=== PATIENT | male | born 1955 | race African-American/Black ===

== ENCOUNTER 2018-11-17 19:58 | Inpatient (IN) | payer MEDICAID ==
[~2018-11-17] VITALS: Ht 165.1 cm; Wt 65.3 kg
[~2018-11-17 19:58] MED LIST: ALBU6.7H IH; FLUT1DIS3 IH
[2018-11-17] MEDS ORDERED: IPRATROPIUM BROMIDE (0.02%) 0.5MG/2.5ML NEB HHN STA (20:18)
[2018-11-17] MEDS ORDERED: SODIUM CHLORIDE 0.9% 1,000 ML IV ONE (20:18)
[2018-11-17] MEDS ORDERED: METHYLPREDNISOLONE SOD SUCC 125 MG/2 ML VIAL IV STA (20:18)
[2018-11-17] MEDS ORDERED: MAGNESIUM 2 G PREMIX 50 ML IV ONE (20:30)
[2018-11-17 20:40] LABS: HEMATOCRIT. 43.8 % (42.0-52.0); HEMOGLOBIN. 14.3 g/dL (14.0-18.0); LYMPHOCYTES % 17.3 % (20.0-50.0); MEAN PLATELET VOLUME 9.9 fl (7.4-10.4); MONOCYTES % 9.5 % (2.0-8.0); NEUTROPHILS % 69.9 % (40.0-76.0); PLATELET 176 x1000/uL (130-400); RED BLOOD CELL COUNT 4.93 mill/uL (4.7-6.1); RED CELL DISTRIBUTION WIDTH 17.8 % (11.6-14.6)
[2018-11-17 20:41] LABS: BASOPHILS % 0.5 % (0.0-2.0); EOSINOPHILS % 2.8 % (0.0-5.0)
[2018-11-17 20:44] LABS: CHLORIDE 108 mEq/L (98-107)
[2018-11-17] MEDS: ALBUTEROL (0.083%) 2.5MG/3ML NEB HHN SCH ×3 (21:00→21:34)
[2018-11-17] MEDS ORDERED: IPRATROPIUM/ALBUTEROL 0.5-3(2.5)MG/3ML NEB INH PRN (22:30)
[2018-11-17] MEDS ORDERED: DOCUSATE SODIUM 100MG CAPSULE PO PRN (22:30)
[2018-11-17] MEDS ORDERED: ONDANSETRON HCL 4MG/2ML INJ IV PRN (22:30)
[2018-11-17] MEDS ORDERED: BUDESONIDE 0.5MG/2ML NEB HHN SCH (22:30)
[2018-11-17] MEDS ORDERED: IPRATROPIUM/ALBUTEROL 0.5-3(2.5)MG/3ML NEB INH SCH (22:30)
[2018-11-17] MEDS ORDERED: MAGNESIUM/ALUMINUM HYDROXIDE/SIMETHICONE 30ML UDC PO PRN (22:30)
[2018-11-17] MEDS ORDERED: ACETAMINOPHEN 325MG TABLET PO PRN (22:30)
[2018-11-18] VITALS (14 sets, daily range): BP systolic 102–161; BP diastolic 50–134
[2018-11-18] MEDS: IPRATROPIUM/ALBUTEROL 0.5-3(2.5)MG/3ML NEB INH SCH ×5 (05:15→20:45)
[2018-11-18] MEDS: METHYLPREDNISOLONE SOD SUCC 40 MG/ML VIAL IV SCH ×3 (05:40→21:39)
[2018-11-18] MEDS: BUDESONIDE 0.5MG/2ML NEB HHN SCH ×2 (08:26→20:45)
[2018-11-18 09:20] LABS: BASOPHILS % 0.1 % (0.0-2.0); LYMPHOCYTES % 12.5 % (20.0-50.0); MEAN CORPUSCULAR HEMOGLOBIN 28.6 pg (28.0-32.0); MEAN PLATELET VOLUME 9.7 fl (7.4-10.4); MONOCYTES % 2.7 % (2.0-8.0); NEUTROPHILS % 84.7 % (40.0-76.0); PLATELET 163 x1000/uL (130-400); RED BLOOD CELL COUNT 4.55 mill/uL (4.7-6.1); RED CELL DISTRIBUTION WIDTH 17.7 % (11.6-14.6)
[2018-11-18 09:43] LABS: HDL CHOLESTEROL 71 mg/dL (40-59)
[2018-11-18 09:44] LABS: LDL CHOLESTEROL 118 mg/dL (5-100)
[2018-11-18 09:46] LABS: CREATINE KINASE 145 IU/L (39-308); CREATINE KINASE MB FRACTION 3.1 ng/mL (0.5-3.6)
[2018-11-18] MEDS: ENOXAPARIN 40MG/0.4ML SYR SUBCUT SCH (10:02)
[2018-11-18] MEDS: CLONIDINE 0.1MG TABLET PO PRN (12:54)
[2018-11-18 15:21] LABS: CLARITY URINE CLEAR (CLEAR); COLOR URINE YELLOW (YELLOW); KETONES URINE TRACE (NEGATIVE); LEUKOCYTE ESTERASE URINE NEGATIVE (NEGATIVE); NITRITE URINE NEGATIVE (NEGATIVE); OCCULT BLOOD URINE NEGATIVE (NEGATIVE); PROTEIN URINE NEGATIVE (NEGATIVE); SPECIFIC GRAVITY URINE 1.031 (1.005-1.030); UROBILINOGEN URINE 0.2 E.U./dL (0.2-1.0)
[2018-11-18 15:52] LABS: *AMPHETAMINES SCREEN URINE PRESUMTIVE POSITIVE (NEGATIVE); *BARBITURATES SCREEN URINE NEGATIVE (NEGATIVE); *BENZODIAZEPINES SCREEN URINE NEGATIVE (NEGATIVE); *COCAINE SCREEN URINE NEGATIVE (NEGATIVE); METHADONE URINE SCREEN NEGATIVE (NEGATIVE)
[2018-11-18 15:53] LABS: CANNABINOID URINE SCREEN PRESUMTIVE POSITIVE (NEGATIVE); OPIATES URINE SCREEN NEGATIVE (NEGATIVE); PHENCYCLIDINE URINE SCREEN NEGATIVE (NEGATIVE)
[2018-11-18 16:35] LABS: CREATINE KINASE 130 IU/L (39-308)
[2018-11-18 16:37] LABS: CREATINE KINASE MB FRACTION 2.5 ng/mL (0.5-3.6)
[2018-11-18] MEDS ORDERED: LORAZEPAM 2MG/ML CPJ IV PRN (17:15)
[2018-11-18] MEDS: AMLODIPINE 2.5MG TABLET PO SCH (18:11)
[2018-11-18] MEDS: NICOTINE 21MG PATCH TD SCH (18:13)
[2018-11-18 18:28] LABS: T4 FREE 0.88 ng/dL (0.76-1.46)
[2018-11-18 18:54] LABS: VITAMIN B12 SERUM 521 pg/mL (211-911)
[2018-11-18 18:56] LABS: FOLIC ACID (FOLATE) SERUM > 20.00 ng/mL (>5.38)
[2018-11-18] MEDS: ATORVASTATIN CALCIUM 20MG TABLET PO SCH (21:39)
[2018-11-19] VITALS (11 sets, daily range): BP systolic 113–149; BP diastolic 46–85
[2018-11-19] MEDS: HYDROCODONE/ACETAMINOPHEN 5/325MG TABLET PO PRN ×3 (00:20→14:18)
[2018-11-19] MEDS: IPRATROPIUM/ALBUTEROL 0.5-3(2.5)MG/3ML NEB INH SCH ×6 (00:35→20:42)
[2018-11-19 06:41] LABS: BASOPHILS % 0.1 % (0.0-2.0); HEMOGLOBIN. 12.1 g/dL (14.0-18.0); LYMPHOCYTES % 8.1 % (20.0-50.0); MEAN CORPUSCULAR HEMOGLOBIN 29.1 pg (28.0-32.0); MEAN CORPUSCULAR VOLUME 88.9 fL (80.0-94.0); MEAN PLATELET VOLUME 9.9 fl (7.4-10.4); MONOCYTES % 3.7 % (2.0-8.0); NEUTROPHILS % 88.1 % (40.0-76.0); PLATELET 161 x1000/uL (130-400); RED BLOOD CELL COUNT 4.17 mill/uL (4.7-6.1); RED CELL DISTRIBUTION WIDTH 18.1 % (11.6-14.6)
[2018-11-19] MEDS: METHYLPREDNISOLONE SOD SUCC 40 MG/ML VIAL IV SCH (07:05)
[2018-11-19 07:17] LABS: CHLORIDE 111 mEq/L (98-107)
[2018-11-19] MEDS: BUDESONIDE 0.5MG/2ML NEB HHN SCH ×2 (08:08→20:42)
[2018-11-19] MEDS: AMLODIPINE 2.5MG TABLET PO SCH (09:17)
[2018-11-19] MEDS: ENOXAPARIN 40MG/0.4ML SYR SUBCUT SCH (09:17)
[2018-11-19] MEDS: NICOTINE 21MG PATCH TD SCH (09:18)
[2018-11-19] MEDS: METHYLPREDNISOLONE SOD SUCC 125 MG/2 ML VIAL IV SCH ×2 (14:23→21:20)
[2018-11-19] MEDS: ATORVASTATIN CALCIUM 20MG TABLET PO SCH (21:19)
[2018-11-20] VITALS (7 sets, daily range): BP systolic 113–138; BP diastolic 69–88
[2018-11-20] MEDS: IPRATROPIUM/ALBUTEROL 0.5-3(2.5)MG/3ML NEB INH SCH ×6 (00:25→19:57)
[2018-11-20] MEDS: HYDROCODONE/ACETAMINOPHEN 5/325MG TABLET PO PRN ×3 (06:45→18:26)
[2018-11-20] MEDS: METHYLPREDNISOLONE SOD SUCC 125 MG/2 ML VIAL IV SCH ×3 (06:45→21:10)
[2018-11-20 07:37] LABS: CHLORIDE 106 mEq/L (98-107)
[2018-11-20 08:16] LABS: HEMATOCRIT. 38.1 % (42.0-52.0); HEMOGLOBIN. 12.2 g/dL (14.0-18.0); MEAN CORPUSCULAR HEMOGLOBIN 28.5 pg (28.0-32.0); MEAN CORPUSCULAR VOLUME 88.7 fL (80.0-94.0); MEAN PLATELET VOLUME 10.2 fl (7.4-10.4); PLATELET 169 x1000/uL (130-400); RED CELL DISTRIBUTION WIDTH 17.7 % (11.6-14.6)
[2018-11-20] MEDS: BUDESONIDE 0.5MG/2ML NEB HHN SCH ×2 (08:20→19:57)
[2018-11-20] MEDS: ENOXAPARIN 40MG/0.4ML SYR SUBCUT SCH (08:39)
[2018-11-20] MEDS: NICOTINE 21MG PATCH TD SCH (08:49)
[2018-11-20] MEDS: AMLODIPINE 2.5MG TABLET PO SCH (08:49)
[2018-11-20 14:08] LABS: FERRITIN 32 ng/mL (22-322)
[2018-11-20 15:17] LABS: PLATELET ESTIMATE NORMAL
[2018-11-20] MEDS: ATORVASTATIN CALCIUM 20MG TABLET PO SCH (21:10)
[2018-11-21] VITALS (12 sets, daily range): BP systolic 118–154; BP diastolic 58–109
[2018-11-21] MEDS: IPRATROPIUM/ALBUTEROL 0.5-3(2.5)MG/3ML NEB INH SCH ×6 (00:05→20:35)
[2018-11-21] MEDS: METHYLPREDNISOLONE SOD SUCC 125 MG/2 ML VIAL IV SCH ×2 (05:20→14:26)
[2018-11-21 07:21] LABS: CHLORIDE 108 mEq/L (98-107)
[2018-11-21 07:27] LABS: HEMOGLOBIN. 12.6 g/dL (14.0-18.0); MEAN CORPUSCULAR HEMOGLOBIN 28.3 pg (28.0-32.0); MEAN CORPUSCULAR VOLUME 89.7 fL (80.0-94.0); MEAN PLATELET VOLUME 10.2 fl (7.4-10.4); PLATELET 190 x1000/uL (130-400); RED BLOOD CELL COUNT 4.46 mill/uL (4.7-6.1); RED CELL DISTRIBUTION WIDTH 17.8 % (11.6-14.6)
[2018-11-21] MEDS: AMLODIPINE 2.5MG TABLET PO SCH (08:20)
[2018-11-21] MEDS: NICOTINE 21MG PATCH TD SCH (08:20)
[2018-11-21] MEDS: ENOXAPARIN 40MG/0.4ML SYR SUBCUT SCH (08:21)
[2018-11-21] MEDS: BUDESONIDE 0.5MG/2ML NEB HHN SCH (08:57)
[2018-11-21] MEDS: HYDROCODONE/ACETAMINOPHEN 5/325MG TABLET PO PRN (10:38)
[2018-11-21 10:43] LABS: ATYPICAL LYMPHOCYTES 1
[2018-11-21 10:44] LABS: PLATELET ESTIMATE NORMAL
[2018-11-21] MEDS: ATORVASTATIN CALCIUM 20MG TABLET PO SCH (21:31)
[2018-11-21] MEDS: METHYLPREDNISOLONE SOD SUCC 40 MG/ML VIAL IV SCH (22:13)
[2018-11-22] VITALS (12 sets, daily range): BP systolic 93–168; BP diastolic 35–88
[2018-11-22] MEDS: IPRATROPIUM/ALBUTEROL 0.5-3(2.5)MG/3ML NEB INH SCH ×6 (00:18→20:35)
[2018-11-22] MEDS: METHYLPREDNISOLONE SOD SUCC 40 MG/ML VIAL IV SCH ×3 (05:52→21:19)
[2018-11-22] MEDS: NICOTINE 21MG PATCH TD SCH (08:49)
[2018-11-22] MEDS: AMLODIPINE 2.5MG TABLET PO SCH (08:49)
[2018-11-22] MEDS: ENOXAPARIN 40MG/0.4ML SYR SUBCUT SCH (08:49)
[2018-11-22] MEDS: HYDROCODONE/ACETAMINOPHEN 5/325MG TABLET PO PRN (09:02)
[2018-11-22] MEDS ORDERED: OXYCODONE HCL/ACETAMINOPHEN 5/325MG TABLET PO PRN (11:30)
[2018-11-22] MEDS: CLONIDINE 0.1MG TABLET PO PRN (16:37)
[2018-11-22] MEDS: ATORVASTATIN CALCIUM 20MG TABLET PO SCH (21:19)
[2018-11-23] VITALS (9 sets, daily range): BP systolic 68–168; BP diastolic 50–110
[2018-11-23] MEDS: IPRATROPIUM/ALBUTEROL 0.5-3(2.5)MG/3ML NEB INH SCH ×4 (00:32→13:00)
[2018-11-23] MEDS: CLONIDINE 0.1MG TABLET PO PRN ×2 (02:08→08:25)
[2018-11-23] MEDS: METHYLPREDNISOLONE SOD SUCC 40 MG/ML VIAL IV SCH (05:44)
[2018-11-23] MEDS: ENOXAPARIN 40MG/0.4ML SYR SUBCUT SCH (08:27)
[2018-11-23] MEDS: NICOTINE 21MG PATCH TD SCH (08:28)
[2018-11-23] MEDS: AMLODIPINE 2.5MG TABLET PO SCH (08:29)
[2018-11-23 11:50] LABS: BG CARBOXYHEMOGLOBIN 0.4 % (0.5-1.5); BG DEOXYHEMOGLOBIN 9.3 % (0.0-5.0); BG FRACTION INSPIRED OXYGEN 21; BG HCO3 ACT 24.5 mmol/L (22.0-26.0); BG METHEMOGLOBIN 0.1 % (0.0-1.5); BG OXYGEN SATURATION 90.7 % (92.0-98.5); BG OXYHEMOGLOBIN 90.2 % (94.0-97.0); BG PCO2 35.2 mmHg (35.0-45.0); BG PO2 58.1 mmHg (75.0-100.0); BG SAMPLE SITE RIGHT RADIAL; BG TOTAL HEMOGLOBIN 13.3 g/dL (12.0-18.0); BG VENT MODE ROOM AIR
== END 2018-11-23 14:45 | disposition home or self-care (01) | DRG 812 ==
LOC: ER 20:19 → 5EST 21:11 → UNDOADMIN 21:11 → EDBEDREQTM 21:14 → EDBEDREQ 21:14 → ENRESERV 11-18 00:34 → 5EST 11-18 04:35
PROVIDERS: ADMIT Internal Medicine; ATTEND Internal Medicine
PROC: 5A09357 Assistance with Respiratory Ventilation, Less than 24 Consecutive Hours, Continuous Positive Airway Pressure (ICD-10-PCS; 2018-11-17)
PROC: 5A09457 Assistance with Respiratory Ventilation, 24-96 Consecutive Hours, Continuous Positive Airway Pressure (ICD-10-PCS; principal; 2018-11-18)
PROC: 5A09357 Assistance with Respiratory Ventilation, Less than 24 Consecutive Hours, Continuous Positive Airway Pressure (ICD-10-PCS; 2018-11-20)
PROC: 5A09357 Assistance with Respiratory Ventilation, Less than 24 Consecutive Hours, Continuous Positive Airway Pressure (ICD-10-PCS; 2018-11-21)
PROC: 5A09357 Assistance with Respiratory Ventilation, Less than 24 Consecutive Hours, Continuous Positive Airway Pressure (ICD-10-PCS; 2018-11-22)
DX: T43.621A Poisoning by amphetamines, accidental (unintentional), initial encounter (principal); J96.00 Acute respiratory failure, unspecified whether with hypoxia or hypercapnia; J44.1 Chronic obstructive pulmonary disease with (acute) exacerbation; I27.20 Pulmonary hypertension, unspecified; I11.0 Hypertensive heart disease with heart failure; I50.22 Chronic systolic (congestive) heart failure; J68.0 Bronchitis and pneumonitis due to chemicals, gases, fumes and vapors; D64.9 Anemia, unspecified; G44.009 Cluster headache syndrome, unspecified, not intractable; G89.4 Chronic pain syndrome; F15.10 Other stimulant abuse, uncomplicated; E78.5 Hyperlipidemia, unspecified; F12.10 Cannabis abuse, uncomplicated; F14.10 Cocaine abuse, uncomplicated; F99 Mental disorder, not otherwise specified; F17.210 Nicotine dependence, cigarettes, uncomplicated; F32.9 Major depressive disorder, single episode, unspecified; F43.10 Post-traumatic stress disorder, unspecified; M48.00 Spinal stenosis, site unspecified; N40.0 Benign prostatic hyperplasia without lower urinary tract symptoms; R79.1 Abnormal coagulation profile; Z59.0 Homelessness; T40.7X1A Poisoning by cannabis (derivatives), accidental (unintentional), initial encounter
CPT/HCPCS: 36415; 36600; 71045; 80048; 80061; 80305; 82375; 82550; 82553; 82607; 82728; 82746; 82805; 83036; 83540; 83550; 83605; 83735; 83880; 84145; 84439; 84443; 84481; 84484; 85379; 87804; 93005; 93306; 93970; 94640; 94660; 96365; 96366; 96375; 97162; 99291; J1650; J2920; J2930; J3475; J7030; J7611; J7620; J7626

== ENCOUNTER 2019-01-26 07:49 | Emergency (ER) | payer MEDICAID ==
[~2019-01-26] VITALS: Ht 170.2 cm; Wt 70.0 kg
[2019-01-26 11:19] LABS: BASOPHILS % 0.1 % (0.0-2.0); EOSINOPHILS % 1.5 % (0.0-5.0); HEMATOCRIT. 44.1 % (42.0-52.0); HEMOGLOBIN. 14.1 g/dL (14.0-18.0); LYMPHOCYTES % 21.6 % (20.0-50.0); MEAN CORPUSCULAR VOLUME 87.4 fL (80.0-94.0); MEAN PLATELET VOLUME 9.6 fl (7.4-10.4); MONOCYTES % 7.5 % (2.0-8.0); NEUTROPHILS % 69.3 % (40.0-76.0); PLATELET 207 x1000/uL (130-400); RED BLOOD CELL COUNT 5.05 mill/uL (4.7-6.1); RED CELL DISTRIBUTION WIDTH 17.2 % (11.6-14.6)
[2019-01-26 11:25] LABS: CHLORIDE 108 mEq/L (98-107)
[2019-01-26 11:58] VITALS: BP 152/90
== END 2019-01-26 12:02 | disposition home or self-care (01) ==
LOC: ER 07:49
DX: R11.10 Vomiting, unspecified (principal); R19.7 Diarrhea, unspecified; E87.5 Hyperkalemia; J45.909 Unspecified asthma, uncomplicated; J44.9 Chronic obstructive pulmonary disease, unspecified; G43.909 Migraine, unspecified, not intractable, without status migrainosus; F12.10 Cannabis abuse, uncomplicated; F17.200 Nicotine dependence, unspecified, uncomplicated; Z79.899 Other long term (current) drug therapy
CPT/HCPCS: 36415; 99283

== ENCOUNTER 2019-01-28 17:03 | Emergency (ER) | payer MEDICAID ==
[~2019-01-28] VITALS: Ht 165.1 cm; Wt 64.0 kg
[2019-01-28 18:40] VITALS: BP 139/81
== END 2019-01-28 19:24 | disposition left against medical advice (07) ==
LOC: ER 18:53
DX: Z53.21 Procedure and treatment not carried out due to patient leaving prior to being seen by health care provider (principal)
CPT/HCPCS: 99281; 99283

== ENCOUNTER 2019-02-26 19:31 | Inpatient (IN) | payer MEDICAID ==
[~2019-02-26] VITALS: Ht 165.1 cm; Wt 65.8 kg
[2019-02-26] MEDS ORDERED: ONDANSETRON HCL 4MG/2ML INJ IV STA (20:07)
[2019-02-26] MEDS ORDERED: METHYLPREDNISOLONE SOD SUCC 125 MG/2 ML VIAL IV STA (20:07)
[2019-02-26] MEDS ORDERED: MORPHINE SULFATE 4 MG/ML CPJ (NOT FOR IM USE) IV STA (20:07)
[2019-02-26] MEDS ORDERED: LEVOFLOXACIN 750MG PREMIX 150 ML IV ONE (20:15)
[2019-02-26] MEDS ORDERED: IPRATROPIUM/ALBUTEROL 0.5-3(2.5)MG/3ML NEB HHN ONE (20:15)
[2019-02-26 20:31] LABS: BASOPHILS % 0.7 % (0.0-2.0); EOSINOPHILS % 6.6 % (0.0-5.0); HEMATOCRIT. 36.4 % (42.0-52.0); HEMOGLOBIN. 12.2 g/dL (14.0-18.0); LYMPHOCYTES % 28.8 % (20.0-50.0); MEAN CORPUSCULAR HEMOGLOBIN 28.5 pg (28.0-32.0); MEAN CORPUSCULAR VOLUME 84.9 fL (80.0-94.0); MEAN PLATELET VOLUME 9.5 fl (7.4-10.4); MONOCYTES % 9.9 % (2.0-8.0); PLATELET 241 x1000/uL (130-400); RED BLOOD CELL COUNT 4.29 mill/uL (4.7-6.1); RED CELL DISTRIBUTION WIDTH 16.3 % (11.6-14.6)
[2019-02-26 20:36] LABS: CHLORIDE 112 mEq/L (98-107)
[2019-02-26 20:40] LABS: ETHANOL BLOOD < 10 mg/dL
[2019-02-26 20:41] LABS: PARTIAL THROMBOPLASTIN TIME 30.1 sec (23.4-31.0)
[2019-02-26 21:09] LABS: BG BASE EXCESS 2.8 mmol/L (-2.0-2.0); BG CARBOXYHEMOGLOBIN 1.4 % (0.5-1.5); BG DEOXYHEMOGLOBIN 22.6 % (0.0-5.0); BG FRACTION INSPIRED OXYGEN 21; BG HCO3 ACT 29.1 mmol/L (22.0-26.0); BG METHEMOGLOBIN 0.2 % (0.0-1.5); BG OXYHEMOGLOBIN 75.8 % (94.0-97.0); BG PCO2 52.5 mmHg (35.0-45.0); BG PH 7.362 (7.350-7.450); BG PO2 43.3 mmHg (75.0-100.0); BG SAMPLE SITE RIGHT BRACHIAL; BG TOTAL HEMOGLOBIN 12.4 g/dL (12.0-18.0); BG VENT MODE ROOM AIR
[2019-02-26] MEDS ORDERED: DOCUSATE SODIUM 100MG CAPSULE PO PRN (23:45)
[2019-02-26] MEDS ORDERED: GUAIFENESIN 200MG/10ML SUGAR FREE UDC PO PRN (23:45)
[2019-02-26] MEDS ORDERED: ACETAMINOPHEN 325MG TABLET PO PRN (23:45)
[2019-02-26] MEDS ORDERED: IPRATROPIUM/ALBUTEROL 0.5-3(2.5)MG/3ML NEB INH PRN (23:45)
[2019-02-26] MEDS ORDERED: MAGNESIUM/ALUMINUM HYDROXIDE/SIMETHICONE 30ML UDC PO PRN (23:45)
[2019-02-27] VITALS (7 sets, daily range): BP systolic 88–162; BP diastolic 45–86
[2019-02-27 00:15] LABS: CHLORIDE 112 mEq/L (98-107)
[2019-02-27 03:02] LABS: CLARITY URINE CLEAR (CLEAR); COLOR URINE YELLOW (YELLOW); KETONES URINE TRACE (NEGATIVE); LEUKOCYTE ESTERASE URINE 1+ (NEGATIVE); NITRITE URINE NEGATIVE (NEGATIVE); OCCULT BLOOD URINE NEGATIVE (NEGATIVE); PH URINE 6.5 (4.5-8.0); PROTEIN URINE TRACE (NEGATIVE); SPECIFIC GRAVITY URINE 1.035 (1.005-1.030)
[2019-02-27 03:11] LABS: *AMPHETAMINES SCREEN URINE NEGATIVE (NEGATIVE); *BARBITURATES SCREEN URINE NEGATIVE (NEGATIVE); *BENZODIAZEPINES SCREEN URINE NEGATIVE (NEGATIVE)
[2019-02-27 03:13] LABS: *COCAINE SCREEN URINE NEGATIVE (NEGATIVE); CANNABINOID URINE SCREEN PRESUMTIVE POSITIVE (NEGATIVE); METHADONE URINE SCREEN NEGATIVE (NEGATIVE); OPIATES URINE SCREEN PRESUMTIVE POSITIVE (NEGATIVE); PHENCYCLIDINE URINE SCREEN NEGATIVE (NEGATIVE)
[2019-02-27] MEDS: METHYLPREDNISOLONE SOD SUCC 40 MG/ML VIAL IV SCH ×3 (06:20→21:08)
[2019-02-27] MEDS: PANTOPRAZOLE 40MG DR TABLET PO SCH (06:21)
[2019-02-27] MEDS: IPRATROPIUM/ALBUTEROL 0.5-3(2.5)MG/3ML NEB INH SCH ×4 (08:00→20:00)
[2019-02-27] MEDS: AZITHROMYCIN 500 MG TABLET PO SCH (08:10)
[2019-02-27] MEDS: ENOXAPARIN 40MG/0.4ML SYR SUBCUT SCH (09:06)
[2019-02-27 09:17] LABS: BASOPHILS % 0.1 % (0.0-2.0); HEMATOCRIT. 38.3 % (42.0-52.0); HEMOGLOBIN. 12.3 g/dL (14.0-18.0); LYMPHOCYTES % 18.2 % (20.0-50.0); MEAN CORPUSCULAR HEMOGLOBIN 27.8 pg (28.0-32.0); MEAN CORPUSCULAR VOLUME 86.3 fL (80.0-94.0); MONOCYTES % 1.1 % (2.0-8.0); NEUTROPHILS % 80.6 % (40.0-76.0); PLATELET 233 x1000/uL (130-400); RED BLOOD CELL COUNT 4.43 mill/uL (4.7-6.1); RED CELL DISTRIBUTION WIDTH 16.2 % (11.6-14.6)
[2019-02-27 09:48] LABS: HDL CHOLESTEROL 64 mg/dL (40-59)
[2019-02-27 09:49] LABS: CREATINE KINASE 208 IU/L (39-308); CREATINE KINASE MB FRACTION 2.3 ng/mL (0.5-3.6)
[2019-02-27 09:50] LABS: LDL CHOLESTEROL 125 mg/dL (5-100)
[2019-02-27] MEDS ORDERED: NICOTINE 14MG PATCH TD SCH (15:45)
[2019-02-27] MEDS: BUDESONIDE 0.5MG/2ML NEB HHN SCH (15:46)
[2019-02-27] MEDS: MONTELUKAST SODIUM 10MG TABLET PO SCH (16:04)
[2019-02-27] MEDS: CLONIDINE 0.1MG TABLET PO PRN (16:04)
[2019-02-27 16:05] LABS: CREATINE KINASE 240 IU/L (39-308)
[2019-02-27 16:06] LABS: CREATINE KINASE MB FRACTION 2.5 ng/mL (0.5-3.6)
[2019-02-27] MEDS: HYDROCODONE/ACETAMINOPHEN 5/325MG TABLET PO PRN (17:31)
[2019-02-27] MEDS ORDERED: VANCOMYCIN 1 G PREMIX 200 ML IV SCH (23:00)
[2019-02-28] VITALS (7 sets, daily range): BP systolic 139–169; BP diastolic 49–99
[2019-02-28] MEDS: IPRATROPIUM/ALBUTEROL 0.5-3(2.5)MG/3ML NEB INH SCH ×6 (00:46→21:40)
[2019-02-28] MEDS: BUDESONIDE 0.5MG/2ML NEB HHN SCH ×3 (00:46→09:00)
[2019-02-28] MEDS: METHYLPREDNISOLONE SOD SUCC 40 MG/ML VIAL IV SCH ×3 (05:00→21:29)
[2019-02-28] MEDS: PANTOPRAZOLE 40MG DR TABLET PO SCH (05:00)
[2019-02-28 06:54] LABS: BASOPHILS % 0.1 % (0.0-2.0); HEMATOCRIT. 36.1 % (42.0-52.0); HEMOGLOBIN. 11.5 g/dL (14.0-18.0); LYMPHOCYTES % 7.8 % (20.0-50.0); MEAN CORPUSCULAR VOLUME 84.8 fL (80.0-94.0); MEAN PLATELET VOLUME 10.2 fl (7.4-10.4); MONOCYTES % 2.7 % (2.0-8.0); NEUTROPHILS % 89.4 % (40.0-76.0); PLATELET 229 x1000/uL (130-400); RED BLOOD CELL COUNT 4.26 mill/uL (4.7-6.1); RED CELL DISTRIBUTION WIDTH 16.1 % (11.6-14.6)
[2019-02-28 07:11] LABS: CHLORIDE 109 mEq/L (98-107)
[2019-02-28] MEDS: ENOXAPARIN 40MG/0.4ML SYR SUBCUT SCH (08:50)
[2019-02-28] MEDS: AZITHROMYCIN 500 MG TABLET PO SCH (08:51)
[2019-02-28] MEDS: NICOTINE 21MG PATCH TD SCH (08:51)
[2019-02-28] MEDS: TRIAMCINOLONE ACETONIDE 0.1 % OINT 15GM TOP SCH ×2 (09:09→21:29)
[2019-02-28 10:31] LABS: BG BASE EXCESS -0.7 mmol/L (-2.0-2.0); BG CARBOXYHEMOGLOBIN 0.4 % (0.5-1.5); BG DEOXYHEMOGLOBIN 6.2 % (0.0-5.0); BG FRACTION INSPIRED OXYGEN 21; BG HCO3 ACT 23.4 mmol/L (22.0-26.0); BG METHEMOGLOBIN 0.2 % (0.0-1.5); BG OXYGEN SATURATION 93.8 % (92.0-98.5); BG OXYHEMOGLOBIN 93.2 % (94.0-97.0); BG PCO2 36.5 mmHg (35.0-45.0); BG PH 7.424 (7.350-7.450); BG PO2 67.7 mmHg (75.0-100.0); BG SAMPLE SITE RIGHT BRACHIAL; BG TOTAL HEMOGLOBIN 12.9 g/dL (12.0-18.0); BG VENT MODE ROOM AIR
[2019-02-28] MEDS: HYDROCODONE/ACETAMINOPHEN 5/325MG TABLET PO PRN ×2 (11:10→21:55)
[2019-02-28] MEDS: VANCOMYCIN 1250MG in DEXTROSE 5% WATER 250ML IV SCH ×2 (11:17→21:27)
[2019-02-28] MEDS: MONTELUKAST SODIUM 10MG TABLET PO SCH (16:48)
[2019-02-28] MEDS: AMLODIPINE 5MG TABLET PO SCH (21:28)
[2019-02-28] MEDS: ATORVASTATIN CALCIUM 10MG TABLET PO SCH (21:28)
[2019-02-28] MEDS: FAMOTIDINE 20MG TABLET PO SCH (21:29)
[2019-03-01] VITALS (9 sets, daily range): BP systolic 126–163; BP diastolic 63–110
[2019-03-01] MEDS: IPRATROPIUM/ALBUTEROL 0.5-3(2.5)MG/3ML NEB INH SCH ×6 (01:06→21:43)
[2019-03-01] MEDS: METHYLPREDNISOLONE SOD SUCC 40 MG/ML VIAL IV SCH ×3 (06:08→22:00)
[2019-03-01 07:06] LABS: HEMATOCRIT. 38.1 % (42.0-52.0); HEMOGLOBIN. 12.1 g/dL (14.0-18.0); MEAN CORPUSCULAR HEMOGLOBIN 26.7 pg (28.0-32.0); MEAN CORPUSCULAR VOLUME 84.4 fL (80.0-94.0); MEAN PLATELET VOLUME 10.2 fl (7.4-10.4); PLATELET 214 x1000/uL (130-400); RED BLOOD CELL COUNT 4.51 mill/uL (4.7-6.1); RED CELL DISTRIBUTION WIDTH 16.1 % (11.6-14.6)
[2019-03-01 07:45] LABS: CHLORIDE 108 mEq/L (98-107)
[2019-03-01] MEDS: BUDESONIDE 0.5MG/2ML NEB HHN SCH ×2 (07:49→21:46)
[2019-03-01] MEDS: VANCOMYCIN 1250MG in DEXTROSE 5% WATER 250ML IV SCH (08:33)
[2019-03-01] MEDS: AMLODIPINE 5MG TABLET PO SCH ×2 (08:34→20:20)
[2019-03-01] MEDS: NICOTINE 21MG PATCH TD SCH (08:34)
[2019-03-01] MEDS: FAMOTIDINE 20MG TABLET PO SCH ×2 (08:34→20:20)
[2019-03-01] MEDS: ENOXAPARIN 40MG/0.4ML SYR SUBCUT SCH (08:34)
[2019-03-01] MEDS: AZITHROMYCIN 500 MG TABLET PO SCH (08:34)
[2019-03-01] MEDS: TRIAMCINOLONE ACETONIDE 0.1 % OINT 15GM TOP SCH ×2 (09:00→22:15)
[2019-03-01] MEDS: HYDROCODONE/ACETAMINOPHEN 5/325MG TABLET PO PRN ×2 (09:10→23:14)
[2019-03-01] MEDS: VANCOMYCIN 1 G PREMIX 200 ML IV SCH ×2 (14:48→22:00)
[2019-03-01] MEDS: MONTELUKAST SODIUM 10MG TABLET PO SCH (16:52)
[2019-03-01] MEDS: ATORVASTATIN CALCIUM 10MG TABLET PO SCH (20:20)
[2019-03-01] MEDS: CLONIDINE 0.1MG TABLET PO PRN (20:21)
[2019-03-01] MEDS: ONDANSETRON HCL 4MG/2ML INJ IV PRN (21:56)
[2019-03-02] VITALS (13 sets, daily range): BP systolic 138–184; BP diastolic 75–121
[2019-03-02] MEDS: IPRATROPIUM/ALBUTEROL 0.5-3(2.5)MG/3ML NEB INH SCH ×6 (00:30→21:01)
[2019-03-02] MEDS: VANCOMYCIN 1 G PREMIX 200 ML IV SCH ×3 (05:14→21:25)
[2019-03-02] MEDS: METHYLPREDNISOLONE SOD SUCC 40 MG/ML VIAL IV SCH ×2 (05:17→14:01)
[2019-03-02 05:24] LABS: PLATELET ESTIMATE NORMAL
[2019-03-02] MEDS: CLONIDINE 0.1MG TABLET PO PRN (05:29)
[2019-03-02] MEDS ORDERED: LIDOCAINE HCL 1% 20ML VIAL (Pyxis) INJ ONE (07:40)
[2019-03-02 08:07] LABS: HEMATOCRIT. 41.6 % (42.0-52.0); HEMOGLOBIN. 13.4 g/dL (14.0-18.0); MEAN CORPUSCULAR HEMOGLOBIN 27.3 pg (28.0-32.0); MEAN CORPUSCULAR VOLUME 84.8 fL (80.0-94.0); MEAN PLATELET VOLUME 10.4 fl (7.4-10.4); PLATELET 245 x1000/uL (130-400); RED BLOOD CELL COUNT 4.91 mill/uL (4.7-6.1); RED CELL DISTRIBUTION WIDTH 16.5 % (11.6-14.6)
[2019-03-02] MEDS: AZITHROMYCIN 500 MG TABLET PO SCH (08:09)
[2019-03-02] MEDS: NICOTINE 21MG PATCH TD SCH (08:09)
[2019-03-02] MEDS: FAMOTIDINE 20MG TABLET PO SCH ×2 (08:12→20:54)
[2019-03-02] MEDS: AMLODIPINE 5MG TABLET PO SCH ×2 (08:12→20:54)
[2019-03-02] MEDS: ENOXAPARIN 40MG/0.4ML SYR SUBCUT SCH (08:13)
[2019-03-02] MEDS: TRIAMCINOLONE ACETONIDE 0.1 % OINT 15GM TOP SCH ×2 (08:21→21:25)
[2019-03-02 08:32] LABS: CHLORIDE 102 mEq/L (98-107)
[2019-03-02] MEDS: BUDESONIDE 0.5MG/2ML NEB HHN SCH (09:30)
[2019-03-02] MEDS ORDERED: CLONIDINE 0.2MG TABLET PO PRN (11:45)
[2019-03-02] MEDS: HYDROCODONE/ACETAMINOPHEN 5/325MG TABLET PO PRN (12:12)
[2019-03-02] MEDS: ONDANSETRON HCL 4MG/2ML INJ IV PRN (12:13)
[2019-03-02] MEDS: CLONIDINE 0.2MG TABLET PO PRN ×2 (12:26→20:53)
[2019-03-02 13:38] LABS: PLATELET ESTIMATE NORMAL
[2019-03-02] MEDS: MONTELUKAST SODIUM 10MG TABLET PO SCH (16:04)
[2019-03-02] MEDS: ATORVASTATIN CALCIUM 10MG TABLET PO SCH (20:53)
[2019-03-03] VITALS: BP 156/116
[2019-03-03] MEDS: IPRATROPIUM/ALBUTEROL 0.5-3(2.5)MG/3ML NEB INH SCH ×6 (00:33→20:31)
[2019-03-03] MEDS: METHYLPREDNISOLONE SOD SUCC 40 MG/ML VIAL IV SCH ×2 (01:19→14:40)
[2019-03-03 02:00] VITALS: BP 183/111
[2019-03-03 04:00] VITALS: BP 171/111
[2019-03-03] MEDS: CLONIDINE 0.2MG TABLET PO PRN (04:27)
[2019-03-03] MEDS: VANCOMYCIN 1 G PREMIX 200 ML IV SCH (05:01)
[2019-03-03 07:52] LABS: BASOPHILS % 0.3 % (0.0-2.0); HEMATOCRIT. 40.2 % (42.0-52.0); HEMOGLOBIN. 13.5 g/dL (14.0-18.0); LYMPHOCYTES % 11.7 % (20.0-50.0); MEAN CORPUSCULAR HEMOGLOBIN 28.1 pg (28.0-32.0); MEAN CORPUSCULAR VOLUME 83.6 fL (80.0-94.0); MEAN PLATELET VOLUME 9.5 fl (7.4-10.4); MONOCYTES % 7.4 % (2.0-8.0); NEUTROPHILS % 80.6 % (40.0-76.0); PLATELET 228 x1000/uL (130-400)
[2019-03-03] MEDS: AZITHROMYCIN 500 MG TABLET PO SCH (07:55)
[2019-03-03] MEDS: TRIAMCINOLONE ACETONIDE 0.1 % OINT 15GM TOP SCH (08:06)
[2019-03-03] MEDS: NICOTINE 21MG PATCH TD SCH (08:06)
[2019-03-03] MEDS: AMLODIPINE 5MG TABLET PO SCH ×2 (08:07→20:55)
[2019-03-03] MEDS: FAMOTIDINE 20MG TABLET PO SCH ×2 (08:07→21:00)
[2019-03-03] MEDS: ENOXAPARIN 40MG/0.4ML SYR SUBCUT SCH ×2 (08:08→09:00)
[2019-03-03 08:20] LABS: CHLORIDE 102 mEq/L (98-107)
[2019-03-03] MEDS ORDERED: ROCURONIUM BROMIDE 10MG/ML VIAL 5ML IV ONE (10:31)
[2019-03-03] MEDS ORDERED: FENTANYL CITRATE/PF 50MCG/ML 2ML VIAL ONE (10:31)
[2019-03-03] MEDS ORDERED: MIDAZOLAM HCL 2 MG/2 ML VIAL ONE (10:31)
[2019-03-03] MEDS ORDERED: SODIUM CHLORIDE 0.9% 10ML VIAL ONE (10:32)
[2019-03-03] MEDS ORDERED: PROPOFOL 200MG/20ML VIAL IV ONE (10:32)
[2019-03-03] MEDS ORDERED: EPHEDRINE SULFATE 50MG/ML VIAL ONE (10:32)
[2019-03-03] MEDS ORDERED: LIDOCAINE HCL/PF 1% 10 MG/ML 5ML VIAL ONE (10:32)
[2019-03-03] MEDS ORDERED: DEXAMETHASONE 4MG/ML 1ML VIAL ONE (10:32)
[2019-03-03] MEDS ORDERED: SUCCINYLCHOLINE CHLORIDE 200MG/10ML IV ONE (10:32)
[2019-03-03] MEDS ORDERED: ONDANSETRON HCL 4MG/2ML INJ ONE (10:37)
[2019-03-03] MEDS ORDERED: SKIN ADHESIVE 0.7 GM EA TOP ONE (11:11)
[2019-03-03] MEDS ORDERED: BACITRACIN 50,000 UNITS/VIAL ONE (11:12)
[2019-03-03] MEDS ORDERED: BUPIVACAINE HCL 0.5% (5MG/ML) 50ML ONE (11:12)
[2019-03-03] MEDS ORDERED: CEFAZOLIN 1000MG PREMIX 50 ML IV SCH (11:30)
[2019-03-03] MEDS ORDERED: ONDANSETRON HCL 4MG/2ML INJ IV PRN (11:30)
[2019-03-03] MEDS ORDERED: ACETAMINOPHEN 650MG SUPP PR PRN (11:30)
[2019-03-03] MEDS ORDERED: PHENYLEPHRINE HCL 10 MG/ML 1ML (IV VIAL) IV ONE (11:55)
[2019-03-03] MEDS: DEXT 5%/0.45% NACL KCL 20MEQ/L 1,000 ML IV SCH (12:00)
[2019-03-03] MEDS ORDERED: BUPIVACAINE HCL 0.5% 175 ML in ON-Q PM013 DRUG DELIV DEVICE 1 EA IR SCH (12:30)
[2019-03-03] MEDS ORDERED: HYDROMORPHONE HCL/PF 2MG/ML CPJ IV PRN (13:00)
[2019-03-03 16:00] VITALS: BP 125/77
[2019-03-03] MEDS: MONTELUKAST SODIUM 10MG TABLET PO SCH (16:55)
[2019-03-03] MEDS: MORPHINE SULFATE 2 MG/ML CPJ (NOT FOR IM USE) IV PRN (18:30)
[2019-03-03 20:00] VITALS: BP 149/89
[2019-03-03] MEDS: ATORVASTATIN CALCIUM 10MG TABLET PO SCH (20:52)
[2019-03-03] MEDS: FAMOTIDINE 20MG/2ML VIAL IV SCH (20:55)
[2019-03-03] MEDS: VANCOMYCIN 750 MG PREMIX 150 ML IV SCH (21:23)
[2019-03-03 22:00] VITALS: BP 152/89
[2019-03-04] VITALS (12 sets, daily range): BP systolic 124–159; BP diastolic 71–109
[2019-03-04] MEDS: IPRATROPIUM/ALBUTEROL 0.5-3(2.5)MG/3ML NEB INH SCH ×6 (00:40→21:32)
[2019-03-04] MEDS: METHYLPREDNISOLONE SOD SUCC 40 MG/ML VIAL IV SCH ×2 (01:58→13:59)
[2019-03-04] MEDS: TRIAMCINOLONE ACETONIDE 0.1 % OINT 15GM TOP SCH ×3 (01:58→20:18)
[2019-03-04] MEDS: DEXT 5%/0.45% NACL KCL 20MEQ/L 1,000 ML IV SCH ×3 (01:58→17:26)
[2019-03-04] MEDS: MORPHINE SULFATE 2 MG/ML CPJ (NOT FOR IM USE) IV PRN ×2 (02:09→10:33)
[2019-03-04] MEDS: VANCOMYCIN 750 MG PREMIX 150 ML IV SCH ×3 (03:53→20:27)
[2019-03-04 07:04] LABS: HEMATOCRIT. 37.5 % (42.0-52.0); HEMOGLOBIN. 12.2 g/dL (14.0-18.0); MEAN CORPUSCULAR HEMOGLOBIN 27.2 pg (28.0-32.0); MEAN CORPUSCULAR VOLUME 83.7 fL (80.0-94.0); PLATELET 220 x1000/uL (130-400); RED BLOOD CELL COUNT 4.48 mill/uL (4.7-6.1)
[2019-03-04 07:13] LABS: CHLORIDE 104 mEq/L (98-107)
[2019-03-04] MEDS: FAMOTIDINE 20MG TABLET PO SCH ×2 (09:00→21:00)
[2019-03-04] MEDS: ENOXAPARIN 40MG/0.4ML SYR SUBCUT SCH (10:03)
[2019-03-04] MEDS: FAMOTIDINE 20MG/2ML VIAL IV SCH ×2 (10:04→20:14)
[2019-03-04] MEDS: NICOTINE 21MG PATCH TD SCH (10:05)
[2019-03-04] MEDS: AZITHROMYCIN 500 MG TABLET PO SCH (10:06)
[2019-03-04] MEDS: AMLODIPINE 5MG TABLET PO SCH ×2 (10:06→20:14)
[2019-03-04 10:47] LABS: PLATELET ESTIMATE NORMAL
[2019-03-04] MEDS: MONTELUKAST SODIUM 10MG TABLET PO SCH (17:26)
[2019-03-04] MEDS: ATORVASTATIN CALCIUM 10MG TABLET PO SCH (20:17)
[2019-03-05] VITALS (11 sets, daily range): BP systolic 127–155; BP diastolic 78–108
[2019-03-05] MEDS: IPRATROPIUM/ALBUTEROL 0.5-3(2.5)MG/3ML NEB INH SCH ×6 (01:40→20:47)
[2019-03-05] MEDS: MORPHINE SULFATE 2 MG/ML CPJ (NOT FOR IM USE) IV PRN ×2 (04:36→21:05)
[2019-03-05] MEDS: VANCOMYCIN 750 MG PREMIX 150 ML IV SCH (04:37)
[2019-03-05] MEDS: DEXT 5%/0.45% NACL KCL 20MEQ/L 1,000 ML IV SCH (04:37)
[2019-03-05 04:41] LABS: HEMATOCRIT. 36.9 % (42.0-52.0); MEAN CORPUSCULAR HEMOGLOBIN 27.1 pg (28.0-32.0); MEAN CORPUSCULAR VOLUME 83.8 fL (80.0-94.0); MEAN PLATELET VOLUME 9.6 fl (7.4-10.4); PLATELET 212 x1000/uL (130-400); RED BLOOD CELL COUNT 4.41 mill/uL (4.7-6.1); RED CELL DISTRIBUTION WIDTH 16.2 % (11.6-14.6)
[2019-03-05 05:27] LABS: CHLORIDE 105 mEq/L (98-107)
[2019-03-05 05:37] LABS: VANCOMYCIN TROUGH 14.9 ug/mL (5.0-10.0)
[2019-03-05] MEDS ORDERED: METHYLPREDNISOLONE SOD SUCC 40 MG/ML VIAL IV SCH (09:00)
[2019-03-05] MEDS: BLOOD SUGAR DIAGNOSTIC STRIP TEST SCH ×4 (09:22→21:00)
[2019-03-05] MEDS ORDERED: DEXTROSE 50% WATER 50ML SYRINGE IV PRN (09:30)
[2019-03-05] MEDS: FAMOTIDINE 20MG/2ML VIAL IV SCH ×2 (09:36→21:05)
[2019-03-05] MEDS: ENOXAPARIN 40MG/0.4ML SYR SUBCUT SCH (09:37)
[2019-03-05] MEDS: AMLODIPINE 5MG TABLET PO SCH ×2 (09:38→21:05)
[2019-03-05] MEDS: NICOTINE 21MG PATCH TD SCH (09:39)
[2019-03-05] MEDS: TRIAMCINOLONE ACETONIDE 0.1 % OINT 15GM TOP SCH ×2 (09:40→21:10)
[2019-03-05] MEDS ORDERED: INSULIN GLARGINE UD 100 UNITS/ML SYR SUBCUT SCH (10:00)
[2019-03-05] MEDS: SODIUM CHLORIDE 0.9% 1,000 ML IV SCH (11:47)
[2019-03-05] MEDS: INSULIN LISPRO 100 UNITS/ML SUBCUT SCH ×3 (12:49→21:00)
[2019-03-05] MEDS: VANCOMYCIN 1500MG in DEXTROSE 5% WATER 250ML IV SCH (14:14)
[2019-03-05 15:29] LABS: PLATELET ESTIMATE NORMAL
[2019-03-05] MEDS: MONTELUKAST SODIUM 10MG TABLET PO SCH (17:59)
[2019-03-05] MEDS: ATORVASTATIN CALCIUM 10MG TABLET PO SCH (21:09)
[2019-03-06] VITALS (8 sets, daily range): BP systolic 96–157; BP diastolic 62–108
[2019-03-06] MEDS: SODIUM CHLORIDE 0.9% 1,000 ML IV SCH ×3 (00:35→16:28)
[2019-03-06] MEDS: IPRATROPIUM/ALBUTEROL 0.5-3(2.5)MG/3ML NEB INH SCH ×6 (00:40→20:25)
[2019-03-06] MEDS: VANCOMYCIN 1500MG in DEXTROSE 5% WATER 250ML IV SCH ×2 (02:45→13:14)
[2019-03-06] MEDS: BLOOD SUGAR DIAGNOSTIC STRIP TEST SCH ×4 (07:30→21:24)
[2019-03-06] MEDS: INSULIN LISPRO 100 UNITS/ML SUBCUT SCH ×4 (08:00→21:00)
[2019-03-06] MEDS: AMLODIPINE 5MG TABLET PO SCH ×2 (09:06→21:00)
[2019-03-06] MEDS: FAMOTIDINE 20MG/2ML VIAL IV SCH ×2 (09:06→21:23)
[2019-03-06] MEDS: NICOTINE 21MG PATCH TD SCH (09:07)
[2019-03-06] MEDS: ENOXAPARIN 40MG/0.4ML SYR SUBCUT SCH (09:07)
[2019-03-06] MEDS: MORPHINE SULFATE 2 MG/ML CPJ (NOT FOR IM USE) IV PRN ×2 (09:08→15:20)
[2019-03-06] MEDS: TRIAMCINOLONE ACETONIDE 0.1 % OINT 15GM TOP SCH ×2 (09:55→21:25)
[2019-03-06 10:21] LABS: BASOPHILS % 0.1 % (0.0-2.0); EOSINOPHILS % 0.1 % (0.0-5.0); HEMATOCRIT. 35.7 % (42.0-52.0); HEMOGLOBIN. 11.8 g/dL (14.0-18.0); LYMPHOCYTES % 18.8 % (20.0-50.0); MEAN CORPUSCULAR VOLUME 84.8 fL (80.0-94.0); MEAN PLATELET VOLUME 10.4 fl (7.4-10.4); MONOCYTES % 10.5 % (2.0-8.0); NEUTROPHILS % 70.5 % (40.0-76.0); PLATELET 195 x1000/uL (130-400); RED BLOOD CELL COUNT 4.21 mill/uL (4.7-6.1); RED CELL DISTRIBUTION WIDTH 15.7 % (11.6-14.6)
[2019-03-06 10:33] LABS: CHLORIDE 111 mEq/L (98-107)
[2019-03-06] MEDS ORDERED: POTASSIUM CHLORIDE 20MEQ TABLET SR PO SCH (12:00)
[2019-03-06] MEDS ORDERED: KCL 20MEQ/100ML PREMIX 100 ML IV SCH (13:00)
[2019-03-06] MEDS: MONTELUKAST SODIUM 10MG TABLET PO SCH (16:27)
[2019-03-06] MEDS: ATORVASTATIN CALCIUM 10MG TABLET PO SCH (21:23)
[2019-03-07] VITALS (10 sets, daily range): BP systolic 121–163; BP diastolic 54–98
[2019-03-07] MEDS: MORPHINE SULFATE 2 MG/ML CPJ (NOT FOR IM USE) IV PRN ×2 (00:37→18:04)
[2019-03-07] MEDS: IPRATROPIUM/ALBUTEROL 0.5-3(2.5)MG/3ML NEB INH SCH ×6 (00:38→21:08)
[2019-03-07] MEDS: VANCOMYCIN 1500MG in DEXTROSE 5% WATER 250ML IV SCH ×2 (01:35→13:22)
[2019-03-07] MEDS: SODIUM CHLORIDE 0.9% 1,000 ML IV SCH ×2 (02:07→13:22)
[2019-03-07 06:43] LABS: HEMATOCRIT. 37.1 % (42.0-52.0); MEAN CORPUSCULAR HEMOGLOBIN 27.4 pg (28.0-32.0); MEAN CORPUSCULAR VOLUME 84.9 fL (80.0-94.0); MEAN PLATELET VOLUME 9.4 fl (7.4-10.4); PLATELET 188 x1000/uL (130-400); RED BLOOD CELL COUNT 4.38 mill/uL (4.7-6.1); RED CELL DISTRIBUTION WIDTH 16.3 % (11.6-14.6)
[2019-03-07 06:55] LABS: CHLORIDE 106 mEq/L (98-107)
[2019-03-07] MEDS: BLOOD SUGAR DIAGNOSTIC STRIP TEST SCH ×4 (07:19→21:44)
[2019-03-07] MEDS: INSULIN LISPRO 100 UNITS/ML SUBCUT SCH ×4 (07:47→21:00)
[2019-03-07] MEDS: NICOTINE 21MG PATCH TD SCH (08:24)
[2019-03-07] MEDS: ENOXAPARIN 40MG/0.4ML SYR SUBCUT SCH (08:24)
[2019-03-07] MEDS: FAMOTIDINE 20MG/2ML VIAL IV SCH ×2 (08:25→21:35)
[2019-03-07] MEDS: AMLODIPINE 5MG TABLET PO SCH ×2 (08:25→21:00)
[2019-03-07] MEDS: TRIAMCINOLONE ACETONIDE 0.1 % OINT 15GM TOP SCH ×2 (08:26→21:35)
[2019-03-07 09:30] LABS: PLATELET ESTIMATE NORMAL
[2019-03-07] MEDS: MONTELUKAST SODIUM 10MG TABLET PO SCH (17:59)
[2019-03-07] MEDS: ATORVASTATIN CALCIUM 10MG TABLET PO SCH (21:36)
[2019-03-08] VITALS (8 sets, daily range): BP systolic 119–139; BP diastolic 65–83
[2019-03-08] MEDS: IPRATROPIUM/ALBUTEROL 0.5-3(2.5)MG/3ML NEB INH SCH ×5 (00:28→17:51)
[2019-03-08] MEDS: MORPHINE SULFATE 2 MG/ML CPJ (NOT FOR IM USE) IV PRN ×2 (00:42→09:20)
[2019-03-08] MEDS: VANCOMYCIN 1500MG in DEXTROSE 5% WATER 250ML IV SCH ×2 (02:00→14:33)
[2019-03-08] MEDS: INSULIN LISPRO 100 UNITS/ML SUBCUT SCH ×3 (08:00→18:00)
[2019-03-08] MEDS: BLOOD SUGAR DIAGNOSTIC STRIP TEST SCH ×3 (08:02→17:33)
[2019-03-08] MEDS: FAMOTIDINE 20MG/2ML VIAL IV SCH (08:23)
[2019-03-08] MEDS: NICOTINE 21MG PATCH TD SCH (08:24)
[2019-03-08] MEDS: ENOXAPARIN 40MG/0.4ML SYR SUBCUT SCH (08:24)
[2019-03-08] MEDS: TRIAMCINOLONE ACETONIDE 0.1 % OINT 15GM TOP SCH (08:25)
[2019-03-08] MEDS: AMLODIPINE 5MG TABLET PO SCH (08:33)
[2019-03-08] MEDS: SODIUM CHLORIDE 0.9% 1,000 ML IV SCH ×2 (08:45→18:45)
[2019-03-08] MEDS ORDERED: NICO-682 TD (13:12)
[2019-03-08] MEDS ORDERED: ATOR10TA PO (13:12)
[2019-03-08] MEDS ORDERED: TC1U15 TOP (13:12)
[2019-03-08] MEDS ORDERED: MONT10TA21 PO (13:12)
[2019-03-08] MEDS ORDERED: AMLO5TAB88 PO (13:12)
[2019-03-08] MEDS: MONTELUKAST SODIUM 10MG TABLET PO SCH (17:33)
== END 2019-03-08 22:15 | DRG 710 ==
LOC: ER 19:31 → EDBEDREQTM 21:57 → EDBEDREQ 21:57 → CANRESERV 22:40 → ENRESERV 22:40 → EDBEDREQTM 02-27 00:59 → EDBEDREQSVC 02-27 00:59 → ENRESERV 02-27 01:42 → 5EST 02-27 02:33
PROVIDERS: ADMIT Internal Medicine; ATTEND Internal Medicine
PROC: 02HV33Z Insertion of Infusion Device into Superior Vena Cava, Percutaneous Approach (ICD-10-PCS; principal; 2019-03-02)
PROC: B548ZZA Ultrasonography of Superior Vena Cava, Guidance (ICD-10-PCS; 2019-03-02)
PROC: 0DN80ZZ Release Small Intestine, Open Approach (ICD-10-PCS; 2019-03-03)
PROC: 0YU60JZ Supplement Left Inguinal Region with Synthetic Substitute, Open Approach (ICD-10-PCS; 2019-03-03)
DX: A41.02 Sepsis due to Methicillin resistant Staphylococcus aureus (principal); J96.01 Acute respiratory failure with hypoxia; J44.1 Chronic obstructive pulmonary disease with (acute) exacerbation; K40.30 Unilateral inguinal hernia, with obstruction, without gangrene, not specified as recurrent; E87.5 Hyperkalemia; I10 Essential (primary) hypertension; K27.9 Peptic ulcer, site unspecified, unspecified as acute or chronic, without hemorrhage or perforation; M48.061 Spinal stenosis, lumbar region without neurogenic claudication; F19.10 Other psychoactive substance abuse, uncomplicated; F32.9 Major depressive disorder, single episode, unspecified; N40.0 Benign prostatic hyperplasia without lower urinary tract symptoms; G43.909 Migraine, unspecified, not intractable, without status migrainosus; E78.5 Hyperlipidemia, unspecified; F12.90 Cannabis use, unspecified, uncomplicated; F17.210 Nicotine dependence, cigarettes, uncomplicated; F43.10 Post-traumatic stress disorder, unspecified; G89.4 Chronic pain syndrome; Z59.0 Homelessness; Z91.14 Patient's other noncompliance with medication regimen; Z79.51 Long term (current) use of inhaled steroids; Z71.6 Tobacco abuse counseling
CPT/HCPCS: 36415; 36600; 71045; 74018; 74176; 76937; 80048; 80061; 80076; 80202; 80305; 80320; 82375; 82550; 82553; 82805; 82962; 83605; 83735; 83880; 84443; 84484; 87077; 93005; 93970; 94640; 99285; C1725; C1781; J0330; J1100; J1650; J1815; J1956; J2250; J2270; J2370; J2405; J2704; J2920; J2930; J3010; J3370; J3480; J3490; J7030; J7050; J7060; J7620; J7626; G0480